=== PATIENT | female | born 2000 | race Caucasian/White ===

== ENCOUNTER 2025-02-20 18:51 | Emergency (ER) | payer OTHER, SELFPAY ==
[2025-02-20 18:57] VITALS: BP 125/89
[2025-02-20 19:21] LABS: Hematocrit 39.9 % (37.0-47.0); Hemoglobin 13.7 g/dL (12.0-16.0); Mean Corp Hgb Conc. 34.3 g/dL (33.0-37.0); Mean Corpuscular Volume 85.4 fL (81.0-99.0); Nucleated Red Blood Cells % 0 %; Platelet Count 252 10^3/uL (130-400); Red Cell Dist. Width 12.0 % (11.5-14.5)
[2025-02-20 19:38] LABS: HCG, Serum Qualitative Screen Negative
[2025-02-20 19:42] LABS: ALT (SGPT) 45 U/L (0-35); AST (SGOT) 42 U/L (14-36); Albumin 4.8 g/dl (3.5-5.0); Alkaline Phosphatase 91 U/L (38-126); Blood Urea Nitrogen 10 mg/dl (7-17); Calcium 9.7 mg/dl (8.4-10.2); Carbon Dioxide 26 mmol/L (22-30); Chloride 103 mmol/L (98-107); Glucose 125 mg/dl (70-99); Lipase 95 U/L (23-300); Potassium 4.0 mmol/L (3.5-5.1); Sodium 138 mmol/L (135-145); Total Protein 7.8 g/dl (6.3-8.2); eGFR > 60.00
--- NOTE | 2025-02-20 23:53 | ED.GENMED ---
History of Present Illness
General
Chief Complaint: Fainting/Passed Out
Source: patient
Exam Limitations: none
Time Seen by Provider: 02/20/25 23:43
Nursing documentation reviewed up to this point in time: agreed with
History of Present Illness
History of Present Illness:
The patient is a 24-year-old female with no significant past medical history, who presented with symptoms of vomiting and diarrhea, which began around 6 PM. She described experiencing multiple episodes and mentioned passing out while on the toilet
due to the severity of the symptoms. She denies hematemesis nor hematochezia. No recurrent episodes of syncope. She denies injury. The vomiting seems to have improved, though diarrhea persists. Since arrival to the ED she has passed an
additional 2-3 small loose stools. She has not had a fever nor chills. No close contacts with similar symptoms. No recent travel nor recent antibiotic use. She denies risk of .
She reports 1 similar episode of GI illness perhaps 15 years ago, related to foodborne illness.
Past History
Past History
ED Past Medical History: None and Psychiatric
ED Past Surgical History: Orthopedic
Social History
Tobacco: Non-smoker
Alcohol: None
Drug: None
Personal: Single
Living: with family
Employment: Employed
Family History
Family History: Other (Noncontributory)
Phy Exam
Physical Exam
Physical Exam:
GENERAL: 24-year-old female appears her stated age, awake and alert, pleasant, appears in no acute distress.
EYE: anicteric
NECK: Supple, nontender, no meningismus, no significant adenopathy.
ENT: oral mucosa is moist. No rhinorrhea.
CARDIAC: Regular rate and rhythm. no murmur.
LUNGS: Clear breath sounds bilaterally, no acute respiratory distress, no wheezes/rales/rhonchi
ABDOMEN: Soft, nondistended, without focal tenderness, no r/g, no cvat. normoactive BS.
NEUROLOGICAL: Alert and oriented x3, no focal neuro deficits. Gait is lockett and steady.
SKIN: Warm and dry, normal color, skin intact. No rash.
MUSCULOSKELETAL: No C/C/E. peripheral pulses are full and equal b/l. No palpable tenderness.
PSYCH: Normal and appropriate interaction.
Course
Orders/Labs/Results
Orders:
Orders
02/20/25 19:03
Electrocardiogram (*1) Urgent
Reason for Study: Abdominal Pain
EKG- Treatment ONCE
Test Result ONCE
02/20/25 19:14
Complete Blood Count/With Diff Urgent
Comprehensive Metabolic Panel Urgent
HCG, Serum Qualitative Screen Urgent
Comment: Notify provider if positive test present
Lipase Urgent
02/20/25 22:57
Urinalysis Reflex To Culture Routine
Comment: RECOLLECT
02/20/25 23:53
Diphenoxylate / Atropine [Lomotil] 1 tablet PO NOW STA
Abnormal Lab Results
02/20/25
19:14
WBC 13.2 H 10^3/uL
(4.8-10.8)
Abs Immat Gran (auto) 0.1 H 10^3/uL
(0-0.05)
Absolute Neuts (auto) 10.3 H 10^3/uL
(1.4-6.5)
Absolute Monos (auto) 0.8 H 10^3/uL
(0.1-0.6)
Neutrophils % 77.6 H %
(42.2-75.2)
Lymphocytes % 14.6 L %
(20.5-51.1)
Glucose 125 H mg/dl
(70-99)
AST 42 H U/L
(14-36)
ALT 45 H U/L
(0-35)
02/20/25 19:14
02/20/25 19:14
Vital Signs
Initial and Last Documented VS:
Initial Vital Signs
Temp Pulse Resp BP Pulse Ox
97.7 F 100 18 125/89 95
02/20/25 18:57 02/20/25 18:57 02/20/25 18:57 02/20/25 18:57 02/20/25 18:57
Last Documented Vital Signs
Temp Pulse Resp BP Pulse Ox
97.7 F 100 18 125/89 95
02/20/25 18:57 02/20/25 18:57 02/20/25 18:57 02/20/25 18:57 02/20/25 23:59
MDM/Problems Addressed
Differential Diagnosis Includes:
The Differential Diagnosis includes, in no particular order and is not limited to:
1. Viral gastroenteritis
2. Foodborne illness
3. Bacterial gastroenteritis
4. Medication-induced gastrointestinal upset
5. Stress-related gastrointestinal symptoms
6. Inflammatory bowel disease exacerbation
7. Lactose intolerance
8. Celiac disease
9. Irritable bowel syndrome
10. Pancreatitis
MDM/Problems Addressed:
Acute nausea, vomiting, diarrhea with 1 episode of syncope while sitting on the toilet.
Overall symptoms are improving. No recurrent syncope. Denies pain.
No significant past medical history. Takes no medicines on a daily basis.
Overall well in appearance. Appears euvolemic. Has been drinking water since arrival to the ED.
Abdomen is soft without appreciable tenderness.
Labs are remarkable for mildly elevated white blood cell count, minimally elevated AST and ALT with normal alkaline phosphatase, normal T. bili, normal electrolytes. hCG is negative.
EKG shows normal sinus rhythm with 1 unifocal PVC otherwise unremarkable.
She remains hemodynamically stable.
Overall symptoms appear to be improving. Tolerating oral fluids. Abdomen is soft, nontender.
I suspect either viral versus foodborne gastroenteritis, self-limiting and improving.
At this point no indication for imaging.
Recommend supportive measures, limiting diet to clear liquids tonight and tomorrow morning then slowly advance to soft bland foods as tolerated. Brat diet discussed for ongoing diarrhea.
Will prescribe Zofran ODT for as needed return of nausea and will prescribe Lomotil for as needed diarrhea. Will give a dose of Lomotil now.
Follow-up with PCP for recheck.
Return precautions discussed.
*Pulse Oximetry
SaO2: 95
Oxygen Mode of Delivery: Room air
Patient hypoxic: no
*Critical Care Note
Total Time (30-74mins, 75-104mins- exclusive of procedures): Not Applicable
ED Attending Note
-
Portions of this chart may have been created with voice recognition software.� Occasional wrong word or��sound alike� substitutions may have occurred due to the inherent limitations of voice recognition software.
Discharge Plan
Departure
Patient Disposition: Home (Routine Discharge)
Date of Disposition: 02/20/25
Time of Disposition: 23:54
Patient with high blood pressure during this ER visit?: No
Condition: Good
Discharge Problem:
Acute gastroenteritis, Vasovagal syncope
Instructions: Food poisoning, Viral gastroenteritis in adults, Clear liquid diet
Prescriptions:
New
diphenoxylate-atropine [Lomotil] 2.5-0.025 mg tablet
1 tab PO QID PRN (Reason: diarrhea) Qty: 10 0RF
ondansetron 4 mg tablet,disintegrating
4 mg PO QID PRN (Reason: nausea and vomiting) Qty: 20 0RF
Interventions
Interventions:
*Risk Screen - Suicide Last Done: 02/20/25 18:57
*General Assessment Last Done: 02/20/25 18:57
*Neglect/Abuse Screening Last Done: 02/20/25 19:02
*ED- Fall Risk Assessment Last Done: 02/20/25 18:57
*ED COVID-19 Vaccine History Last Done: 02/21/25 00:03
*Nursing Disposition Last Done: 02/21/25 00:18
ED- Cardiac Assessment Last Done: 02/21/25 00:03
ED- Neurological Assessment Last Done: 02/21/25 00:03
Discharge Date and Time
Discharge Date/Time: 02/21/25 00:20
Print Language: STATELESS
[2025-02-21 00:02] VITALS: BMI 40.5
[2025-02-21] MEDS: LOMOTIL 1 TABLET PO (00:03)
== END 2025-02-21 00:20 | disposition home or self-care (01) ==
LOC: EMR 18:51
PROVIDERS: Emergency Medicine; EMERGENCY PHYSICIAN Emergency Medicine; FAMILY PHYSICIAN Physician Assistant
DX: K52.9 Noninfective gastroenteritis and colitis, unspecified (principal); R55 Syncope and collapse
CPT/HCPCS: 99283; 80053; 83690; 84703; 85025; 93005